=== PATIENT | female | born 1995 | race Caucasian/White ===

== ENCOUNTER 2025-07-13 08:45 | Emergency (ER) | payer SELFPAY ==
[~2025-07-13] VITALS: Ht 170.2 cm; Wt 78.8 kg
[2025-07-13 09:00] VITALS: BP 126/83; PULSE 112; RESP 18; TEMP 98.8; O2SAT 95
--- NOTE | 2025-07-13 09:23 | ED.PDOC ---
[employer]OPER HPI Comments 29-year-old female currently 11 weeks presents here with abdominal cramping in her lower abdomen and spotting. She states this occurred last night after intercourse. She states she had similar event 3 weeks ago and she was told she had subchorionic hemorrhages in the fetus. Patient is currently at with no complications and previous . All vaginal . She currently does not have an OBGYN due to insurance reasons. She is currently taking prenatals. Reports positive nausea but states it is getting better and she has been able to eat and drink a little bit now. Denies any dysuria. Denies any recent cough cold runny nose fever or chills. 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 History Family History Family History: Reviewed,noncontributory to illness, No family hx of Cancer, No family hx of DM, No family hx of Heart german, No family hx of HTN, No family hx ofKidney german, No family hx of Liver egrman, No family hx of Lung german, No family hx of Stroke Social History Smoker: Non-Smoker Alcohol: Denies ETOH Use Drugs: Denies Drug Use Lives In: Home Constitutional: denies: chills, diaphoresis, fatigue, fever, malaise, sweats, weakness, others EENTM: denies: blurred vision, double vision, ear bleeding, ear discharge, ear drainage, ear pain, ear ringing, eye pain, eye redness, hearing loss, mouth pain, mouth swelling, nasal discharge, nose bleeding, nose congestion, nose pain, photophobia, tearing, throat pain, throat swelling, voice changes, others Respiratory: denies: cough, hemoptysis, orthopnea, SOB at rest, shortness of breath, SOB with excertion, stridor, wheezing, others Cardiovascular: denies: chest pain, dizzy spells, diaphoresis, Dyspnea on exertion, edema, irregular heart beat, left arm pain, lightheadedness, palpitations, PND, syncope, others Gastrointestinal: reports: others (cramping); denies: abdomen distended, abdominal pain, blood streaked bowels, constipated, diarrhea, dysphagia, difficulty swallowing, hematemesis, melena, nausea, poor appetite, poor fluid intake, rectal bleeding, rectal pain, vomiting Genitourinary: reports: abnormal vagina bleeding, ; denies: burning, dyspareunia, dysuria, flank pain, frequency, hematuria, incontinence, pain, vagina discharge, urgency, others Neurological: denies: dizziness, fainting, headache, left sided numbness, left sided weakness, numbness, paresthesia, pre-existing deficit, right sided numbness, right sided weakness, seizure, speech problems, tingling, tremors, weakness, others Musculoskeletal: denies: back pain, gout, joint pain, joint swelling, muscle pain, muscle stiffness, neck pain, others Integumetry: denies: bruises, change in color, change in hair/nails, dryness, laceration, lesions, lumps, rash, wounds, others Allergic/Immunocompromised: denies: Difficulty Healing, Frequent Infections, Hives, Itching, others Hematologic/Lymphatic: denies: anemia, blood clots, easy bleeding, easy bruising, swollen glands, others Endocrine: denies: excessive hunger, excessive sweating, excessive thirst, excessive urination, flushing, intolerance to cold, intolerance to heat, unexplained weight gain, unexplained weight loss, others Psychiatric: denies: anxiety, bipolar disorder, depression, hopeless, panic disorder, schizophrenia, sleepless, suicidal, others All Other Systems: Reviewed and Negative Physical Exam General Appearance: No Apparent Distress, Normal HEENT: Normal ENT Inspection, Pharynx Normal, TMs Normal Neck: Full Range of Motion, Non-Tender, Normal, Normal Inspection Respiratory: Chest Non-Tender, Lungs Clear, No Accessory Muscle Use, No Re spiratory Distress, Normal Breath Sounds Cardiovascular: No Edema, No JVD, No Murmur, No Gallop, Normal Peripheral Pulses, Regular Rate/Rhythm Breast Exam: Deferred Gastrointestinal: No Organomegaly, Non Tender, No Pulsatile Mass, Normal Bowel Sounds, Soft Genitalia: Deferred Pelvic: Deferred Rectal: Deferred Extremities: No calf tenderness, Normal capillary refill, Normal inspection, Normal range of motion, Non-tender, No pedal edema Musculoskeletal : Apperance: Normal Neurologic: Alert, 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 Was a procedure done?: No Differential Diagnosis (COMPUTER DISCOVERY TEACHER) Vaginal Bleeding: - Complete, - Incomplete, - Inevitable, - Missed, - Threatened, Abruptio Placentae, Ectopic , UTI, Other Mass / Lesion: Other Vaginal Discharge: Other X-Ray, Labs, Meds, VS Vital Signs Date Time Temp Pulse Resp B/P (MAP) Pulse Ox O2 Delivery O2 Flow Rate FiO2 07/13/25 09:00 98.8 112 18 126/83 95 98.8 Lab Test 07/13/25 10:10 07/13/25 09:50 Range/Units White Blood Count 11.5 H 4.4-10.8 10^3/uL Red Blood Count 4.42 4.0-5.20 10^6/uL Hemoglobin 14.5 12.2-16.2 g/dL Hematocrit 41.7 36.0-46.0 % Mean Corpuscular Volume 94.5 80.0-100.0 fL Mean Corpuscular Hemoglobin 32.9 H 28.0-32.0 pg Mean Corpuscular Hemoglobin Concent 34.8 32.0-36.0 g/dL Red Cell Distribution Width 12.1 11.8-14.3 % Platelet Count 229 140-450 10^3/uL Mean Platelet Volume 7.7 6.9-10.8 fL Neutrophils (%) (Auto) 80.4 H 37.0-80.0 % Lymphocytes (%) (Auto) 10.5 10.0-50.0 % Monocytes (%) (Auto) 6.7 0.0-12.0 % Eosinophils (%) (Auto) 2.1 0.0-7.0 % Basophils (%) (Auto) 0.3 0.0-2.0 % Neutrophils # (Auto) 9.2 H 1.6-8.6 10 ^3/uL Lymphocytes # (Auto) 1.2 0.4-5.4 10 ^3/uL Monocytes # (Auto) 0.8 0-1.3 10 ^3/uL Eosinophils # (Auto) 0.2 0-0.8 10 ^3/uL Basophils # (Auto) 0 0-0.2 10 ^3/uL Nucleated Red Blood Cells 0.0 % Sodium Level 138 136-145 mmol/L Potassium Level 3.9 3.5-5.1 mmol/L Chloride Level 104 98-107 mmol/L Carbon Dioxide Level 25 20-31 mmol/L Anion Gap 9 5-15 Blood Urea Nitrogen 8 L 9-23 mg/dL Creatinine 0.60 0.550-1.02 mg/dL Glomerular Filtration Rate Calc 123 >90 mL/min BUN/Creatinine Ratio 13.3 10.0-20.0 Serum Glucose 79 74-106 mg/dL Calcium Level 9.2 8.7-10.4 mg/dL Total Bilirubin 0.5 0.2-1.0 mg/dL Aspartate Amino Transferase (AST) 22 13-40 U/L Alanine Aminotransferase (ALT) 21 7-40 U/L Alkaline Phosphatase 72 46-116 U/L Total Protein 6.9 5.7-8.2 g/dL Albumin 4.2 3.2-4.8 g/dL Beta HCG, Quantitative 333007.5 H 1.5-4.2 mIU/mL Urine Color Light-yellow Yellow Urine Clarity Turbid H Clear Urine pH 6.5 5.0-9.0 Urine Specific [place] 1.012 1.001-1.035 Urine Protein Negative Negative Urine Ketones Negative Negative Urine Blood Negative Negative /uL Urine Nitrite Negative Negative Urine Bilirubin Negative Negative Urine Urobilinogen Normal Negative mg/dL Urine Leukocyte Esterase 3+ Negative /uL Urine RBC 5 0 - 4 /hpf Urine Microscopic WBC 1 0-5 /HPF Urine Squamous Epithelial Cells Mod <5 /hpf Urine Bacteria None seen None Seen /hpf Urine Yeast (Budding) Occasional None Seen /hpf Urine Glucose Normal Normal mg/dL [address] [address] Ph: [phone] DIAGNOSTIC IMAGING Diagnostic Imaging Report : [id number] Signed PATIENT: DERECK AARON ACCT: [id number] UNIT: [id number] : 1995 LOC: ER ROOM / BED: / AGE / SEX: 29 / F ADM STATUS: REG ER SERVICE [id number] ORDERING PHYSICIAN: JANAE EDGAR MD PROCEDURE(s): OB4US - OB ULTRASOUND COMP LESS 14WKS REASON: Rule out ectopic , complete ORDER NUMBER(s): [id number], ACCESSION NUMBER(s): [id number] OB ULTRASOUND <14 WEEKS: HISTORY: Rule out ectopic , complete TECHNIQUE: Multiple real-time grayscale sonographic images of the pelvis with duplex Doppler color flow, spectral and M-mode analysis. TRANSDUCERS: Transabdominal COMPARISON: None FINDINGS: The uterus measures 13.5 x 10.3 x 8.6 cm The cervix is not visualized Right ovary measures 3.3 x 1.9 x 2.3 cm with normal Doppler color flow. Left ovary is not visualized. IUP single fetus at 11 weeks and 2 days average ultrasound age based on mean crown-rump length of 4.3 cm and gestational sac size of 5.3 cm heart rate detected at 164 beats per minute. Yolk sac is not present. Placenta is forming posteriorly. Amniotic fluid is subjectively within normal limits Katy-gestational space: Unremarkable IMPRESSION: IUP single live fetus 11 weeks and 2 days AUA corresponding to an PARRIS of 01/30/2026. No acute abnormality detected. ATED BY: KALEN CALVILLO MD DICTATED DATE/TIME: 07/13/25 100 SIGNED BY: KALEN CALVILLO MD SIGNED DATE/TIME: 07/13/25 1009 29-year-old female presents here with vaginal bleeding. She has a proximally 11 weeks . She states the spotting began yesterday after intercourse. Denies any dysuria. At this time I have ordered an ultrasound of her uterus which demonstrates positive IUP of proximally 11 weeks and 2 days at a heart rate of 164 beats. She states she has a history of subchorionic hemorrhage 3 weeks ago however it does not seen on today's ultrasound. CBC and CMP are otherwise unremarkable. Urinalysis demonstrates likely dirty urine. However given she is and does not have an OBGYN are receiving any care, with joint discussion we have decided it is best to treat her for possible UTI. I have sent a prescription for Keflex to her pharmacy of her choice. She is currently taking prenatals. She states that she is going to be going to the medical office right after her visit to the ER to inquire about the status of her medical. I advised her while she is bleeding she should have no intercourse, nothing in her vagina no tampons, no intercourse, no heavy lifting greater than 5 lb. Rh screen has been ordered and patient does not require RhoGAM. Time of 1ST Reevaluation: 11:30 Reevaluation 1ST: Unchanged Patient Education/Counseling: Diagnosis, Treatment Family Education/Counseling: No Family Present Departure 1 Departure Time of Disposition: 11:33 Impression: Primary Impression: Threatened miscarriage Disposition: HOME / SELF CARE / HOMELESS Condition: Good Additional Instructions: Follow up with the [facility] office regarding the status of your health insurance. Continue taking prenatals. Refrain from sexual intercourse, heavy lifting greater than 5 lb, no tampon use until bleeding has stopped. It is important to obtain care as soon as possible. Please return back to the ER as needed. Diagnostic Imaging Report : [id number] Signed PATIENT: DERECK AARON ACCT: [id number] UNIT: [id number] : 1995 LOC: ER ROOM / BED: / AGE / SEX: 29 / F ADM STATUS: REG ER SERVICE 0937 ORDERING PHYSICIAN: JANAE EDGAR MD PROCEDURE(s): OB4US - OB ULTRASOUND COMP LESS 14WKS REASON: Rule out ectopic , complete ORDER NUMBER(s): [id number], ACCESSION NUMBER(s): [id number] OB ULTRASOUND <14 WEEKS: HISTORY: Rule out ectopic , complete TECHNIQUE: Multiple real-time grayscale sonographic images of the pelvis with duplex Doppler color flow, spectral and M-mode analysis. TRANSDUCERS: Transabdominal COMPARISON: None FINDINGS: The uterus measures 13.5 x 10.3 x 8.6 cm The cervix is not visualized Right ovary measures 3.3 x 1.9 x 2.3 cm with normal Doppler color flow. Left ovary is not visualized. IUP single fetus at 11 weeks and 2 days average ultrasound age based on mean crown-rump length of 4.3 cm and gestational sac size of 5.3 cm heart rate detected at 164 beats per minute. Yolk sac is not present. Placenta is forming posteriorly. Amniotic fluid is subjectively within normal limits Katy-gestational space: Unremarkable IMPRESSION: IUP single live fetus 11 weeks and 2 days AUA corresponding to an PARRIS of 01/30/2026. No acute abnormality detected. Discharged With: Self Critical Care Note Critical Care Time?: No Stability Stability form required: No Heart Score Heart Score: Heart Score Response (Comments) Value History N/A 0 EKG N/A 0 Age N/A 0 Risk Factors N/A 0 Troponin N/A 0 Total 0 I personally scribed for JANAE EDGAR MD ([email or web address]) on 07/13/25 at 09:23. Electronically submitted by Shasha Macias ([email or web address]). I personally scribed for JANAE EDGAR MD ([email or web address]) on 07/13/25 at 10:39. Electronically submitted by Shasha Macias ([email or web address]). I personally scribed for JANAE EDGAR MD ([email or web address]) on 07/13/25 at 11:11. Electronically submitted by Shasha Macias ([email or web address]). JANAE EDGAR MD Jul 13, 2025 09:23
--- NOTE | 2025-07-13 10:11 | DVH ---
OB ULTRASOUND <14 WEEKS: HISTORY: Rule out ectopic , complete TECHNIQUE: Multiple real-time grayscale sonographic images of the pelvis with duplex Doppler color f low, spectral and M-mode analysis. TRANSDUCERS: Transabdominal COMPARISON: None FINDINGS: The uterus measures 13.5 x 10.3 x 8.6 cm The cervix is not visualized Right ovary measures 3.3 x 1.9 x 2.3 cm with normal Doppler color flow. Left ovary is not visualized. IUP single fetus at 11 weeks and 2 days average ultrasound age based on mean crown-rump length of 4. 3 cm and gestational sac size of 5.3 cm heart rate detected at 164 beats per minute. Yolk sac is not present. Placenta is forming posteriorly. Amniotic fluid is subjectively within nor mal limits Katy-gestational space: Unremarkable IMPRESSION: IUP single live fetus 11 weeks and 2 days AUA corresponding to an PARRIS of 01/30/2026. No acute abnormality detected.
[2025-07-13 10:23] LABS: Urine Budding Yeast OCCASIONAL /hpf (None Seen); Urine Protein, UAD Negative (Negative)
[2025-07-13 10:38] LABS: Hematocrit 41.7 % (36.0-46.0); Hemoglobin 14.5 g/dL (12.2-16.2); Mean Corpuscular Hemoglobin 32.9 pg (28.0-32.0); Mean Corpuscular Volume 94.5 fL (80.0-100.0); Nucleated Red Blood Cells % 0.0 %
[2025-07-13 10:59] LABS: Alanine Aminotransferase 21 U/L (7-40); Albumin 4.2 g/dL (3.2-4.8); Alkaline Phosphatase 72 U/L (46-116); Anion Gap 9 (5-15); BUN/Creatinine Ratio 13.3 (10.0-20.0); Bilirubin, Total 0.5 mg/dL (0.2-1.0); Blood Urea Nitrogen 8 mg/dL (9-23); Calcium 9.2 mg/dL (8.7-10.4); Carbon Dioxide 25 mmol/L (20-31); Chloride 104 mmol/L (98-107); Glucose 79 mg/dL (74-106); Potassium 3.9 mmol/L (3.5-5.1); Sodium 138 mmol/L (136-145); Total Protein 6.9 g/dL (5.7-8.2)
[2025-07-13] MEDS ORDERED: CEPH500C PO (11:37)
== END 2025-07-13 12:20 | disposition home or self-care (01) ==
LOC: ER 08:45
DX: O20.0 Threatened abortion (principal); Z3A.11 11 weeks gestation of pregnancy
CPT/HCPCS: 36415; 76801; 80053; 81001; 84702; 85025; 86850; 86900; 86901